=== PATIENT | female | born 1980 | race Caucasian/White ===

== ENCOUNTER 2016-11-19 16:23 | Emergency (ER) ==
[2016-11-19 16:27] VITALS: BP 120/71; TEMP 99.2; BMI 36.0
[2016-11-19 16:50] LABS: URINE PREGNANCY INTERNAL QC INTERNAL QC VALID
--- NOTE | 2016-11-19 17:28 | ED.PDOC ---
General ED Provider: Dr. DESTINY JOE Chief Complaint: Fall Stated Complaint: FALL SHOULDER PAIN, ELBOW PAIN RIGHT SIDED Time Seen by Physician: 16:33 (SEEN WITH NURSING STAFF AT ALL TIMES ) Mode of Arrival: Walk-In Information Source: Patient Exam Limitations: No limitations Nursing and Triage Documentation Reviewed and Agree: Yes (NEGATIVE NECK OR BACK PAIN) Review of Systems - Review Of Systems Constitutional: Reports: No symptoms Eyes: Reports: No symptoms Ears, Nose, Mouth, Throat: Reports: No symptoms Respiratory: Reports: No symptoms Cardiac: Reports: No symptoms GI: Reports: No symptoms : Reports: No symptoms Musculoskeletal: Reports: Joint pain Skin: Reports: No symptoms Neurological: Reports: No symptoms Endocrine: Reports: No symptoms Hematologic/Lymphatic: Reports: No symptoms All Other Systems: Reviewed and Negative Past Medical History - Past Medical History Previously Healthy: Yes Endocrine: Reports: None Cardiovascular: Reports: None Respiratory: Reports: None Hematological: Reports: None Gastrointestinal: Reports: None Genitourinary: Reports: None Neuro/Psych: Reports: None Musculoskeletal: Reports: None Cancer: Reports: None Last Menstrual Period: DEPO SHOT - Surgical History General Surgical History: Reports: Cholecystectomy, Orthopedic - Family History Family History: Reports: None - Social History Smoking Status: Never smoker Hx Substance Use: No Alcohol Screening: None Physical Exam - Physical Exam Appearance: Well-appearing, No pain distress, Well-nourished Eyes: DAYNE, EOMI, Conjunctiva clear ENT: Ears normal, Nose normal, Oropharynx normal Respiratory: Airway patent, Breath sounds clear, Breath sounds equal, Respirations nonlabored Cardiovascular: RRR, Pulses normal, No rub, No murmur GI/: Soft, Nontender, No masses, Bowel sounds normal, No Organomegaly Musculoskeletal: Normal strength, ROM intact, No edema, No calf tenderness Skin: Warm, Dry, Normal color Neurological: Sensation intact, Motor intact, Reflexes intact, Cranial nerves intact, Alert, Oriented Psychiatric: Affect appropriate, Mood appropriate Interpretation - Radiology Interpretation Radiology Interpretation By: ED Physician Radiology Results: Negative Critical Care Note - Critical Care Note Total Time (mins): 0 Course - Course Orders, Labs, Meds: Lab Review 11/19/16 16:36 Urine Test Negative Orders Category Date Time Status URINE Stat LAB 11/19/16 16:25 Uncollected CLAVICLE, RIGHT 2 VIEWS Stat RADS 01/15/17 16:26 Ordered ELBOW, RIGHT MIN 3 VIEWS Stat RADS 11/19/16 16:26 Ordered HUMERUS, RIGHT 2 VIEWS Stat RADS 11/19/16 16:26 Ordered SHOULDER, RIGHT MIN 2V Stat RADS 11/19/16 16:25 Ordered Vital Signs: Temp Pulse Resp BP Pulse Ox 11/19/16 16:24 99.2 F 94 H 16 120/71 98 Departure - Departure Time of Disposition: 17:28 Disposition: HOME SELF-CARE Discharge Problem: Right shoulder pain Qualifiers: Chronicity: acute Qualifier Code: (M25.511) Pain in right shoulder Instructions: Shoulder Sprain (ED) Condition: Good Pt referred to PMD for follow-up: No Additional Instructions: Please call your Family Physician as soon as possible to schedule a follow-up appointment. Allergies/Adverse Reactions: Allergies Penicillins Adverse Reaction (Verified 11/19/16 16:26) Home Medications: Ambulatory Orders 1 [No Reported Medications] 11/19/16
--- NOTE | 2016-11-19 22:36 | DI ---
EXAM: Two views of the right humerus. History: Right arm pain. Findings: No acute fracture or dislocation. No abnormal calcifications or radiopaque foreign whitley s. Joint spaces are preserved. Impression: No acute osseous abnormality.
--- NOTE | 2016-11-19 22:37 | DI ---
EXAM: Two views of the right clavicle. History: Right shoulder trauma. Findings: No acute fracture or dislocation. No abnormal calcifications or radiopaque foreign whitley s. Joint spaces are preserved. Impression: No acute osseous abnormality.
--- NOTE | 2016-11-19 22:37 | DI ---
EXAM: Three views of the right shoulder. History: Right shoulder trauma. Findings: No acute fracture or dislocation. No abnormal calcifications or radiopaque foreign whitley s. Joint spaces are preserved. Impression: No acute osseous abnormality.
--- NOTE | 2016-11-19 22:38 | DI ---
EXAM: Three views of the right elbow. History: Right elbow trauma. Findings: No acute fracture or dislocation. No abnormal calcifications or radiopaque foreign whitley s. Joint spaces are preserved. Impression: No acute osseous abnormality.
== END 2016-11-19 17:35 | disposition home or self-care (01) ==
LOC: ED 16:23
DX: M25.511 Pain in right shoulder (principal); M25.521 Pain in right elbow; W19.XXXA Unspecified fall, initial encounter
CPT/HCPCS: 81025; 99283